=== PATIENT | male | born 1985 | race Hispanic/Latino ===

== ENCOUNTER 2022-11-03 10:39 | Emergency (ER) | payer SELFPAY ==
[2022-11-03 10:40] VITALS: BP 136/86; PULSE 82; RESP 16; TEMP 36.6; O2SAT 98; BMI 29.2
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
[2022-11-03] MEDS: Diphth,Pertuss(Acell),Tet Vac 0.5 ML Vial IM (11:51)
[2022-11-03] MEDS: Lidocaine 1% (20 ml mdv) 20 ML Vial INFILT (11:51)
[2022-11-03] MEDS: Cephalexin 500 MG Capsule PO (13:28)
== END 2022-11-03 13:50 | disposition home or self-care (01) ==
PROVIDERS: Emergency Provider Emergency Medicine; Visit Provider Emergency Medicine
DX: S41.012A Laceration without foreign body of left shoulder, initial encounter (principal); Z23 Encounter for immunization; X99.9XXA Assault by unspecified sharp object, initial encounter
CPT/HCPCS: 12002; 90471; 90715; 99284